=== PATIENT | female | born 1945 | race Caucasian/White ===

== ENCOUNTER 2019-08-28 14:49 | Emergency (ER) | payer MEDICARE, OTHER ==
[~2019-08-28] VITALS: Ht 165.1 cm; Wt 89.8 kg
[2019-08-28] MEDS ORDERED: ZOLOFT 50 MG TA50 M1 PO (15:07)
[2019-08-28] MEDS ORDERED: HYDROCHLOROTHIA25 M2 PO (15:07)
[2019-08-28] MEDS ORDERED: VALSARTAN40 MG PO (15:07)
[2019-08-28] MEDS ORDERED: CRESTOR10 MG PO (15:07)
[2019-08-28] MEDS ORDERED: PHENOBARBITAL15 MG PO (15:08)
[2019-08-28 15:10] LABS: URINE BILIRUBIN NEGATIVE (Negative); URINE BLOOD TRACE (Negative); URINE CLARITY CLEAR; URINE COLOR YELLOW; URINE GLUCOSE-RANDOM NEGATIVE (Negative); URINE KETONES NEGATIVE (Negative); URINE PROTEIN NEGATIVE (Negative); URINE UROBILINOGEN 0.2 E.U./dl (0.2-1.0)
[2019-08-28] MEDS ORDERED: FELODIPINE 5 MG5 M1 PO (15:12)
[2019-08-28 15:13] LABS: URINE LEUKOCYTES-REFLEX 3+ (Negative); URINE NITRITE-REFLEX POSITIVE (Negative)
[2019-08-28 15:19] LABS: BACTERIA-REFLEX >30 Many /HPF (None Seen); CASTS None Seen /LPF (None Seen); CRYSTALS None Seen /LPF (None Seen); SQUAMOUS 0-3 Few /LPF (0-3); URINE RBC 0-2 Rare /HPF (0-2); URINE WBC-REFLEX 6-15 Few /HPF (0-5)
[2019-08-28 15:29] LABS: ABSOLUTE EOSINOPHILS 0.1 thou/uL (0.0-0.7); ABSOLUTE LYMPHOCYTES 2.2 thou/uL (0.8-5.3); ABSOLUTE MONOCYTES 0.6 thou/uL (0.0-1.2); ABSOLUTE NEUTROPHILS 4.8 thou/uL (1.6-8.1); BASOPHILS 0.4 %; EOSINOPHILS 1.9 %; HEMATOCRIT 40.7 % (37.0-47.0); HEMOGLOBIN 14.3 gm/dL (12.0-15.0); LYMPHOCYTES 27.8 %; MCH 31.7 pg (26.0-34.0); MCHC 35.2 g/dL (28.0-37.0); MCV 90.1 fL (80.0-100.0); MONOCYTES 8.1 %; MPV 10.5 fl. (7.2-11.1); NUCLEATED RBCS 0 /100WBC; PLATELET COUNT* 200 thou/uL (150-400); POLYS 61.8 %; RBC 4.52 mil/uL (4.20-5.00); RDW-CV 13.2 % (10.5-14.5); WBC 7.8 thou/uL (4.0-11.0)
[2019-08-28 15:38] LABS: CREATININE 0.7 mg/dL (0.6-1.3); POTASSIUM 3.3 mmol/L (3.5-5.1)
[2019-08-28 15:42] LABS: ALBUMIN 3.6 g/dL (3.4-5.0); TOTAL BILIRUBIN 0.2 mg/dL (<0.1-1.0); TOTAL PROTEIN 8.7 g/dL (6.4-8.2)
[2019-08-28] MEDS ORDERED: KEFLEX500 M1 PO (16:32)
[2019-08-28 16:52] VITALS: BP 142/68
== END 2019-08-28 16:53 | disposition home or self-care (01) ==
LOC: M.ERS 14:49
PROVIDERS: Physician Assistant
DX: R19.7 Diarrhea, unspecified (principal); R51 Headache; N39.0 Urinary tract infection, site not specified

== ENCOUNTER 2019-10-31 17:35 | Emergency (ER) | payer MEDICARE, OTHER ==
[~2019-10-31] VITALS: Ht 167.6 cm; Wt 89.8 kg
[~2019-10-31 17:35] MED LIST: CRESTOR10 MG PO; FELODIPINE 5 MG5 M1 PO; HYDROCHLOROTHIA25 M2 PO; KEFLEX500 M1 PO; PHENOBARBITAL15 MG PO; VALSARTAN40 MG PO; ZOLOFT 50 MG TA50 M1 PO
[2019-10-31] MEDS ORDERED: NABUMETONE 750750 M1 PO (18:55)
[2019-10-31 19:13] VITALS: BP 185/61
== END 2019-10-31 19:14 | disposition home or self-care (01) ==
LOC: M.ERS 17:35
DX: M19.071 Primary osteoarthritis, right ankle and foot (principal); M72.2 Plantar fascial fibromatosis; I10 Essential (primary) hypertension; E78.00 Pure hypercholesterolemia, unspecified; Z88.5 Allergy status to narcotic agent; Z90.710 Acquired absence of both cervix and uterus

== ENCOUNTER 2020-03-10 08:10 | Inpatient (IN) | payer MEDICARE, OTHER ==
[~2020-03-10] VITALS: Ht 165.1 cm; Wt 90.7 kg
[~2020-03-10 08:10] MED LIST changes: +NABUMETONE 750750 M1 PO
[2020-03-10 08:11] VITALS: BP 123/61
[2020-03-10] MEDS ORDERED: NEURONTIN 300M300 M2 PO (08:15)
[2020-03-10] MEDS ORDERED: LEVO-T75 MCG PO (08:15)
[2020-03-10 08:30] LABS: ABSOLUTE BASOPHILS 0.1 thou/uL (0.0-0.2); ABSOLUTE EOSINOPHILS 0.2 thou/uL (0.0-0.7); ABSOLUTE LYMPHOCYTES 1.7 thou/uL (0.8-5.3); ABSOLUTE MONOCYTES 0.8 thou/uL (0.0-1.2); ABSOLUTE NEUTROPHILS 5.8 thou/uL (1.6-8.1); BASOPHILS 0.8 %; EOSINOPHILS 2.1 %; HEMATOCRIT 41.1 % (37.0-47.0); HEMOGLOBIN 14.3 gm/dL (12.0-15.0); LYMPHOCYTES 20.4 %; MCH 31.3 pg (26.0-34.0); MCHC 34.8 g/dL (28.0-37.0); MONOCYTES 8.9 %; MPV 10.5 fl. (7.2-11.1); NUCLEATED RBCS 0 /100WBC; PLATELET COUNT* 183 thou/uL (150-400); POLYS 67.8 %; RBC 4.57 mil/uL (4.20-5.00); RDW-CV 12.9 % (10.5-14.5); WBC 8.6 thou/uL (4.0-11.0)
[2020-03-10 08:43] LABS: APTT 25.9 Seconds (25.0-31.3); PROTIME 11.1 Seconds (9.20-11.50)
[2020-03-10 08:45] LABS: CALCIUM 8.8 mg/dL (8.5-10.1); CREATININE 0.8 mg/dL (0.6-1.3); POTASSIUM 3.3 mmol/L (3.5-5.1)
[2020-03-10 08:58] LABS: ALBUMIN 3.2 g/dL (3.4-5.0); CK-MB MASS 1.8 ng/mL (<0.5-3.6); MAGNESIUM 2.1 mg/dL (1.8-2.4); TOTAL BILIRUBIN 0.3 mg/dL (<0.1-1.0); TOTAL PROTEIN 7.9 g/dL (6.4-8.2)
[2020-03-10 10:40] LABS: CHOLESTEROL 162 mg/dL (<200); HDL CHOLESTEROL 71 mg/dL (>40); LDL CHOLESTEROL 67 mg/dL (<100); TC:HDL 2.3 Ratio (Not establshd); TRIGLYCERIDE 123 mg/dL (<150); VLDL 25 mg/dL (<40)
[2020-03-10 10:42] LABS: SERUM ASSESSMENT Clear
[2020-03-10 12:30] VITALS: BP 105/60
--- NOTE | 2020-03-10 15:13 | EKG ---
[place] [address] ELECTROCARDIOGRAM REPORT Name: BLESSING HARRIS V Room: [place] [address] ADM IN .R.#: [id number] Admission: 03/10/20 Attend Phys: Ramiro Britton, Discharge: Date of : 41 Date of Service: 03/10/20814 Report #: [id number] THIS REPORT FOR: //name// [facility] ED Test Date: 2020-03-10 Test Time: 08:15:35 Pat Name: BLESSING HARRIS Department: Room: [facility] Gender: F [employer] Worker: MIRELLA : 1945 Requested By: Henok Gonzalez Order Number: [id number] MD: Orlando Sandoval Measurements Intervals [place] Rate: 90 P: NE: QRS: 72 QRSD: 99 T: -15 QT: 382 QTc: 468 Interpretive Statements Atrial fibrillation Borderline repolarization abnormality Minimal ST elevation, inferior leads No previous ECG available for comparison Electronically Signed On 03-10-2020 15:13:17 MANAGED CARE NURSE by Orlando Sandoval [email or web address] <ELECTRONICALLY SIGNED> By: Orlando Sandoval MD, [facility] 03/10/20 1513 4 4 Orlando Sandoval MD, [facility] /EPI
--- NOTE | 2020-03-10 16:02 | 2DMMODE ---
[place] [address] 2 D/M-MODE ECHOCARDIOGRAM Name: BLESSING HARRIS Lito Room: [place] [address] ADM IN ..#: [id number] Admission: 03/10/20 Attend Phys: Ramiro Britton, Discharge: Date of : 41 Date of Service: 03/10/20 1602 Report #: [id number] THIS REPORT FOR: cc: Blaze Guzman MD, Jason MD Holkins,Orlando Douglas MD [facility] ~ APPROVED REPORT Study performed: 03/10/2020 14:25:41 EXAM: Comprehensive 2D, Doppler, and color-flow Echocardiogram Patient Location: In-Patient Room #: er Status: routine BSA: 1.98 HR: 79 bpm BP: 100/51 mmHg Rhythm: NSR Other Information Study Quality: Good Indications Atrial Fibrillation 2D Dimensions IVSd: 11.31 (7-11mm) LVOT Diam: 20.01 (18-24mm) LVDd: 30.70 mm PWd: 8.99 (7-11mm) Ascending Ao: 30.87 (22-36mm) LVDs: 20.30 (25-40mm) Aortic Root: 33.57 mm Volumes Left Atrial Volume (Systole) LA ESV Index: 14.40 mL/m2 Aortic Valve AoV Peak Serjio.: 0.95 m/s AO Peak Gr.: 3.59 mmHg LVOT Max P.01 mmHg AO Mean Gr.: 2.07 mmHg LVOT Mean P.98 mmHg LVOT Max V: 0.71 m/s AO V2 VTI: 17.21 cm LVOT Mean V: 0.45 m/s CONCEPCION (VTI): 2.63 cm2 LVOT V1 VTI: 14.39 [place] [address] 2 D/M-MODE ECHOCARDIOGRAM Name: BLESSING HARRIS V Room: [address] IN [facility]#: [id number] Admission: 03/10/20 Attend Phys: Ramiro Britton, Discharge: Date of : 41 Date of Service: 03/10/20 1602 Report #: [id number] TDI Medial E' Serjio.: 0.13 m/s Lateral E' Serjio.: 0.13 m/s Pulmonary Valve PV Peak Serjio.: 1.00 m/s PV Peak Gr.: 3.97 mmHg Left Ventricle The left ventricle is normal size. There is normal LV segmental wall motion. There is normal left ventricular wall thickness. Left ventricular systolic function is normal. The left ventricular ejection fraction is within the normal range. LVEF is 55-60%. This study is not technically sufficient to allow evaluation of the LV diastolic function due to atrial fibrillation. Right Ventricle The right ventricle is normal size. The right ventricular systolic function is normal. Atria The left atrium size is normal. The right atrium size is normal. Aortic Valve The aortic valve is normal in structure. No aortic regurgitation is present. There is no aortic valvular stenosis. Mitral Valve The mitral valve is normal in structure. There is no mitral valve regurgitation noted. No evidence of mitral valve stenosis. Tricuspid Valve The tricuspid valve is normal in structure. Trace tricuspid regurgitation. Unable to assess PA pressure. Pulmonic Valve The pulmonary valve is normal in structure. There is no pulmonic valvular regurgitation. Great Vessels The aortic root is normal in size. IVC is normal in size and collapses >50% with inspiration. Pericardium There [place] [address] 2 D/M-MODE ECHOCARDIOGRAM Name: STEVENGELA AYALAMARIEL Morse Room: [address] IN [facility]#: [id number] Admission: 03/10/20 Attend Phys: Ramiro Britton, Discharge: Date of : 41 Date of Service: 03/10/20 1602 Report #: [id number] <Conclusion> The left ventricle is normal size. There is normal left ventricular wall thickness. Left ventricular systolic function is normal. The left ventricular ejection fraction is within the normal range. LVEF is 55-60%. This study is not technically sufficient to allow evaluation of the LV diastolic function due to atrial fibrillation. The right ventricle is normal size. The left atrium size is normal. The aortic valve is normal in structure. The mitral valve is normal in structure. The tricuspid valve is normal in structure. IVC is normal in size and collapses >50% with inspiration. There is no pericardial effusion. There is normal LV segmental wall motion. <ELECTRONICALLY SIGNED> By: Orlando Sandoval MD, FACC 03/10/20 1602 160 160 Orlando Sandoval MD, FACC /INF
[2020-03-10 16:33] VITALS: BP 115/51
[2020-03-10 17:33] VITALS: BP 145/68
[2020-03-10 20:00] VITALS: BP 136/65
[2020-03-11] VITALS (7 sets, daily range): BP systolic 110–145; BP diastolic 40–57
[2020-03-11 04:31] LABS: ABSOLUTE BASOPHILS 0.1 thou/uL (0.0-0.2); ABSOLUTE EOSINOPHILS 0.3 thou/uL (0.0-0.7); ABSOLUTE LYMPHOCYTES 2.4 thou/uL (0.8-5.3); ABSOLUTE MONOCYTES 0.7 thou/uL (0.0-1.2); ABSOLUTE NEUTROPHILS 4.3 thou/uL (1.6-8.1); BASOPHILS 0.8 %; EOSINOPHILS 3.3 %; HEMATOCRIT 38.4 % (37.0-47.0); LYMPHOCYTES 31.1 %; MCH 30.9 pg (26.0-34.0); MCHC 33.9 g/dL (28.0-37.0); MCV 91.2 fL (80.0-100.0); MONOCYTES 9.6 %; MPV 11.1 fl. (7.2-11.1); NUCLEATED RBCS 0 /100WBC; PLATELET COUNT* 170 thou/uL (150-400); POLYS 55.2 %; RBC 4.22 mil/uL (4.20-5.00); RDW-CV 13.6 % (10.5-14.5); WBC 7.7 thou/uL (4.0-11.0)
[2020-03-11 04:52] LABS: CALCIUM 8.7 mg/dL (8.5-10.1); CREATININE 0.7 mg/dL (0.6-1.3)
[2020-03-11 04:53] LABS: POTASSIUM 4.4 mmol/L (3.5-5.1)
--- NOTE | 2020-03-11 17:50 | CARDNUC ---
[place] [address] CARDIAC NUCLEAR IMAGING REPORT Name: STEVENBLESSING AYALA Lito Room: [address] IN [facility].#: [id number] Admission: 03/10/20 Attend Phys: Ramiro Britton, Discharge: Date of : 41 Date of Service: 03/11/20 1750 Report #: [id number] THIS REPORT FOR: cc: Blaze Guzman MD, Jason MD Biggs, F. Douglas MD [facility] ~ ADDENDUM APPROVED REPORT Study performed: 03/11/2020 10:02:34 Exam: Nuclear Stress Test Indication: Chest tightness, dyspnea, Afib, elevated D-Dimer. Patient Location: In-Patient Room #: 229 Stress Tech: Alanna Bird Stress Nurse: Leah Bustamante R.N. Ht: 5 ft 5 in Wt: 200 lbs BSA: 1.98 m2 BMI: 33.27 Medical History Medical History: Chest tightness, dyspnea, elevated D-Dimer, Lightheadedness, Emphysema, AFib with RVR, HX Epilepsy, secondary hypercoagulopathy, HTN, HLD, past smoker. Medications: ASA 81 Mg, HCTZ, Hydralazine, Amlodipine, Losartan K+, Atorvastatin, K-Dur. Allergies: Codeine. Cardiac Risk Factors: Age, FHX of CAD, HTN, Hyperlipidemia, SOB, Past Smoker, Obesity, AFib. Previous Cardiac Procedures: None Pretest Chest Pain Characteristics: No chest pain Exercise History: Indeterminate Physical Disabilities: Hx AFib with RVR, Epilepsy, unstable gait. Meds Held (24 hrs): None Stress Test Details Stress Test: Pharmacologic stress testing performed using 0.4 mg of regadenoson per 5 mL given IV over 10 seconds. Reason for pharmacologic stress test: Hx AFib with RVR, Epilepsy, Unstable gait.. HR Resting HR: 71 bpm Max Heart Rate (APMHR): 144 bpm Max HR Achieved: 87 bpm Target HR (85% APMHR): 122 [place] [address] CARDIAC NUCLEAR IMAGING REPORT Name: BLESSING HARRIS V Room: [address]#: [id number] Admission: 03/10/20 Attend Phys: Ramiro Britton, Discharge: Date of : 41 Date of Service: 03/11/20 4360 Report #: [id number] % of APMHR: 60 Recovery HR: 79 bpm HR response to stress: Normal HR response to stress BP Resting BP: 137/61 mmHg Max BP: 115/53 mmHg BP response to stress: Normal blood pressure response to stress. ECG Resting ECG: Sinus Rhythm, normal EKG Stress ECG: Sinus Rhythm, normal EKG ST Change: None Arrhythmia: None Recovery ECG: Sinus Rhythm, normal EKG Recovery ST Change: None Recovery Arrhythmia: None Clinical Reason for Termination: Completed protocol Stress Symptoms: Lightheadedness. Exercise duration: 00 min 00 sec Exercise capacity: 1.00 METs Nurse Comments A 74 year old female inpatient presented for a sitting Lexiscan r/t new onset AFib with RVR, dyspnea, chest tightness, elevated D-Dimer. Test well tolerated. Recovery unremarkable. Patient was stable and stated she felt good when escorted to Nuclear Medicine for imaging. Stress ECG Conclusion Clinical: Non-ischemic Non-diagnostic pharmacologic EKG stress due to failure to attain target HR. NM EXAM: Myocardial Perfusion REST/STRESS Imaging Protocol: Rest Tc-99m/Stress Tc-99m 2 days Resting Data Rest SPECT myocardial perfusion imaging was performed in supine position 30 minutes following the intravenous injection of 32.0 mCi of Tc-99m Sestamibi. Time of rest injection: 1414 Date: 03/10/2020 The images were gated to evaluate regional wall motion [place] [address] CARDIAC NUCLEAR IMAGING REPORT Name: BLESSING HARRIS V Room: [address] IN M..#: [id number] Admission: 03/10/20 Attend Phys: Ramiro Britton, Discharge: Date of : 41 Date of Service: 03/11/20 3500 Report #: [id number] left ventricular ejection fraction. Administration Route: IV Administration Site: Left Arm Pharmacologic Stress Pharmacologic stress test was performed by injecting Regadenoson 0.4 mg IV push followed by the intravenous injection of 31.8 mCi of Tc-99m Sestamibi. Time of stress injection: 1005 Date: 03/11/2020 Administration Route: IV Administration Site: Left Arm Gated Stress SPECT was performed 40 minutes after stress injection. The images were gated to evaluate regional wall motion and calculate left ventricular ejection fraction. Prone imaging was performed. Study Quality Study: Good Artifact: Mild Soft tissue attenuation artifact Study Data At rest, the left ventricular ejection fraction was 81%.. Post stress, the left ventricular ejection was 83%.. SSS: 2 SRS: 0 SDS: 2 TID = 1.14. Perfusion Normal left ventricular perfusion. The resting study demonstrated a small mild anterior defect. The post-rest images demonstrate a small mild anterior defect and a very small very mild inferior defect. Prone images were done and demonstrate only very small mild anterior defect. There were no reversible defects seen there was no evidence of myocardial ischemia. The fixed defect seen could represent old myocardial infarction but likely just represents t chest wall or breast artifact. Images were [place] [address] CARDIAC NUCLEAR IMAGING REPORT Name: BLESSING HARRIS V Room: [address] IN [facility].#: [id number] Admission: 03/10/20 Attend Phys: Ramiro Britton, Discharge: Date of : 41 Date of Service: 03/11/20 1750 Report #: [id number] Wall Motion Normal left ventricular wall motion. Nuclear Conclusion ECG Findings: non-diagnostic Clinical Findings: negative for ischemia Nuclear Findings: negative for ischemia Exercise Capacity: not assessed Left Ventricular Function: normal Risk Study: low Normal study. No scintigraphic evidence for myocardial ischemia or scar. <Conclusion> Clinical: Non-ischemic Non-diagnostic pharmacologic EKG stress due to failure to attain target HR. <ELECTRONICALLY SIGNED> By: Fred Simms MD, FACC 03/11/201749 49 49 Fred Simms MD, FACC /INF
[2020-03-12 04:00] VITALS: BP 138/62
[2020-03-12 08:00] VITALS: BP 137/52
[2020-03-12] MEDS ORDERED: FLECAINIDE ACET50 M1 PO (09:51)
[2020-03-12] MEDS ORDERED: ELIQUIS5 MG PO (09:51)
[2020-03-12 12:28] VITALS: BP 131/62
[2020-03-12 13:28] VITALS: BP 131/62
--- NOTE | 2020-03-12 18:23 | EKG ---
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 ANN : 1945 Requested By: Holley Patel Order Number: [id number] Reading MD: Ousmane Simms Measurements Intervals [place] Rate: 63 P: 55 [place]: 230 QRS: 77 QRSD: 102 T: 33 QT: 425 QTc: 436 Interpretive Statements Sinus rhythm Prolonged [place] interval Probable left atrial enlargement Low voltage, precordial leads Baseline wander in lead(s) V5 Compared to ECG 03/10/2020 08:15:35 First degree AV block now present Low QRS voltage now present Atrial fibrillation no longer present ST (T wave) deviation no longer present Electronically Signed On 03-12-2020 18:22:55 RECRUITING MANAGER by Ousmane Simms [email or web address] <ELECTRONICALLY SIGNED> By: Fred Simms MD, FACC 03/12/20 1822 07 07 Fred Simms MD, [facility] /EPI
== END 2020-03-12 14:40 | disposition home health service (06) | DRG 309 ==
LOC: M.ERS 08:10 → M.2W 09:29 → M.TBA-ER 09:29 → M.2W 17:18
PROVIDERS: Family Medicine; Registered Nurse; ADMIT Internal Medicine; ATTEND Internal Medicine
DX: I48.0 Paroxysmal atrial fibrillation (principal); D68.69 Other thrombophilia; E03.9 Hypothyroidism, unspecified; I10 Essential (primary) hypertension; G40.909 Epilepsy, unspecified, not intractable, without status epilepticus; E78.00 Pure hypercholesterolemia, unspecified; E78.5 Hyperlipidemia, unspecified; E87.6 Hypokalemia; J43.9 Emphysema, unspecified; Z20.828 Contact with and (suspected) exposure to other viral communicable diseases; Z88.5 Allergy status to narcotic agent; Z79.899 Other long term (current) drug therapy; Z87.891 Personal history of nicotine dependence

== ENCOUNTER 2020-03-22 12:17 | Emergency (ER) | payer MEDICARE, OTHER ==
[~2020-03-22] VITALS: Ht 165.1 cm; Wt 90.7 kg
--- NOTE | ~2020-03-22 | EMS ---
[facility] [address] [place] [address] EMS Patient Care Report Name: BLESSING HARRIS [id number] Admission: 03/22/20 Attend Phys: Discharge: 03/22/20 Date of : 41 Report #: [id number] THIS REPORT FOR: //name// Report Transmitted: 03/25/2020 12:08 EMS Care Summary LILIA SUBRAMANIAN Incident [id number] @ 03/10/2020 07:27 Incident Location [address] [place] [address] Patient Blessing Harris Female, 74 Years 1945 Patient Address [address] [place] [address] Patient History Hypertension (HTN),Epilepsy, unspecified, not intractable,, Patient Allergies , Chief Complaint Chest Pain Disposition Transported No Lights/[place] Dispatch Reason Chest Pain (Non-Traumatic) Transported To [facility] Narrative [facility] ARRIVED ON SCENE OF A RESIDENCE FOR A 74 YEAR OLD FEMALE WITH CHEST PAIN. [facility] AND [facility] PERSONNEL ENTERED THE RESIDENCE AND MADE CONTACT WITH AN AWAKE AND ALERT FEMALE SITTING ON THE COUCH SHOWING MILD SIGNS OF SHORTNESS OF AIR. BLESSING REPORTED TIGHTNESS WHICH SHE DESCRIBED A BAND AROUND HER CHEST AND MILD SHORTNESS OF AIR SINCE MIDNIGHT. VITAL SIGNS AND A 12 LEAD EKG WERE OBTAINED SHOWING RAPID ATRIAL FIBRILLATION ON THE MONITOR WITH A RATE BETWEEN [facility] [address] [place] [address] EMS Patient Care Report Name: BLESSING HARRIS V Room: [facility] ([place] [place])#: [id number] Admission: 03/22/20 Attend Phys: Discharge: 03/22/20 Date of : 41 Report #: [id number] 75 AND 140 BPM. BLESSING PLACED HERSELF ON THE COT WHERE SHE WAS SECURED VIA 5 SAFETY STRAPS PRIOR TO BEING SECURED INTO THE AMBULANCE. TREATMENTS AND INTERVENTIONS WERE EXECUTED AND BLESSING WAS MONITORED DURING TRANSPORT TO [facility] WITH A DECREASE IN HEART RATE (65-100 BPM) AND NO OTHER SIGNIFICANT CHANGES. UPON ARRIVAL, BLESSING WAS REMOVED FROM THE UNIT AND TAKEN INSIDE TO ER 16 WHERE SHE TRANSFERRED HERSELF LATERALLY ONTO THE ER BED. REPORT WAS GIVEN TO THE RECEIVING RN AND CARE WAS TRANSFERRED. [facility] BACK IN SERVICE. Initial Vitals @07:36Pain: 11/04, @08:09Pain: 11/04, @07:36SpO2: 99, @08:07SpO2: 99, @07:37 @07:36 @07:37P: 105,R: 20,BP: 209/94, @08:05P: 90,R: 18,BP: 138/72, @07:37GCS: 15, @08:05GCS: 15, @07:47Glucose: 178, Assessments @07:36MENTAL:SKIN:HEENT:LUNG SOUNDS:ABDOMEN:PELVIS//GI:EXTREMITIES:PULSE:NEURO: Impression Cardiac arrhythmia/dysrhythmia Procedures @07:46 cc () Site: Forearm-LeftResponse: UnchangedSucceeded@07:3712-Lead ECGResponse: UnchangedSucceeded@07:363-Lead ECGResponse: UnchangedSucceeded Timeline 00:36,Call Received 07:26,Dispatch Notified 07:,Psap Call 07:27,Dispatched 07:27,En Route 07:33,On Scene 07:36,At Patient 07:36,3-Lead ECG,Response: UnchangedSucceeded, 07:36,BP: / M,PULSE: ,RR: R,SPO2: Ox,ETCO2: ,BG: ,PAIN: 8,GCS: , 07:36,BP: / M,PULSE: ,RR: R,SPO2: 99 Ox,ETCO2: ,BG: ,PAIN: ,GCS: , 07:36,BP: / M,PULSE: ,RR: R,SPO2: Ox,ETCO2: ,BG: ,PAIN: ,GCS: , 07:37,12-Lead ECG,Response: UnchangedSucceeded, 07:37,BP: / M,PULSE: ,RR: R,SPO2: Ox,ETCO2: ,BG: ,PAIN: ,GCS: , [place] [address] EMS Patient Care Report Name: BLESSING HARRIS V Room: [facility] ([place] [place])#: [id number] Admission: 03/22/20 Attend Phys: Discharge: 03/22/20 Date of : 41 Report #: [id number] 07:37,BP: 209/94 M,PULSE: 105,RR: 20 R,SPO2: Ox,ETCO2: ,BG: ,PAIN: ,GCS: , 07:37,BP: / M,PULSE: ,RR: R,SPO2: Ox,ETCO2: ,BG: ,PAIN: ,GCS: 15, 07:46, cc Site: Forearm-Left,Response: UnchangedSucceeded, 07:47,BP: / M,PULSE: ,RR: R,SPO2: Ox,ETCO2: ,B,PAIN: ,GCS: , 07:48,Depart Scene 08:05,BP: 138/72 M,PULSE: 90,RR: 18 R,SPO2: Ox,ETCO2: ,BG: ,PAIN: ,GCS: , 08:05,BP: / M,PULSE: ,RR: R,SPO2: Ox,ETCO2: ,BG: ,PAIN: ,GCS: 15, 08:07,BP: / M,PULSE: ,RR: R,SPO2: 99 Ox,ETCO2: ,BG: ,PAIN: ,GCS: , 08:09,BP: / M,PULSE: ,RR: R,SPO2: Ox,ETCO2: ,BG: ,PAIN: 8,GCS: , 08:09,At Destination 08:19,Call Closed Disclaimer v1.1 Copyright 2020 [employer] This EMS Care Summary contains data elements from the applicable legal record (which may be displayed differently). It is designed to provide pertinent information for the following purposes: continuity of care, clinical quality, and state data reporting. The complete legal record is available to ED staff and administrators of the receiving hospital in [employer] Patient Tracker. All data is provided "as is."
[~2020-03-22 12:17] MED LIST changes: +ELIQUIS5 MG PO; +FLECAINIDE ACET50 M1 PO; +LEVO-T75 MCG PO; +NEURONTIN 300M300 M2 PO
[2020-03-22] MEDS ORDERED: CALCIUM 600 +1 EAC1 PO (12:35)
[2020-03-22 12:54] LABS: ABSOLUTE BASOPHILS 0.1 thou/uL (0.0-0.2); ABSOLUTE EOSINOPHILS 0.3 thou/uL (0.0-0.7); ABSOLUTE LYMPHOCYTES 1.7 thou/uL (0.8-5.3); ABSOLUTE MONOCYTES 0.6 thou/uL (0.0-1.2); ABSOLUTE NEUTROPHILS 4.4 thou/uL (1.6-8.1); BASOPHILS 0.8 %; EOSINOPHILS 3.6 %; HEMATOCRIT 36.5 % (37.0-47.0); HEMOGLOBIN 12.4 gm/dL (12.0-15.0); LYMPHOCYTES 24.6 %; MCH 30.9 pg (26.0-34.0); MCHC 34.1 g/dL (28.0-37.0); MCV 90.8 fL (80.0-100.0); MONOCYTES 8.4 %; MPV 10.1 fl. (7.2-11.1); NUCLEATED RBCS 0 /100WBC; PLATELET COUNT* 188 thou/uL (150-400); POLYS 62.6 %; RBC 4.02 mil/uL (4.20-5.00); RDW-CV 13.8 % (10.5-14.5)
[2020-03-22] MEDS ORDERED: POTASSIUM20 PO (12:57)
[2020-03-22] MEDS ORDERED: HYDROCHLOROTHIA25 M2 PO (12:57)
[2020-03-22 13:02] LABS: CALCIUM 8.7 mg/dL (8.5-10.1); CREATININE 0.8 mg/dL (0.6-1.3); POTASSIUM 3.8 mmol/L (3.5-5.1)
[2020-03-22 13:07] LABS: APTT 27.1 Seconds (25.0-31.3); PROTIME 10.9 Seconds (9.20-11.50)
[2020-03-22 13:13] LABS: ALBUMIN 3.3 g/dL (3.4-5.0); TOTAL BILIRUBIN 0.2 mg/dL (<0.1-1.0); TOTAL PROTEIN 7.3 g/dL (6.4-8.2)
[2020-03-22 13:34] VITALS: BP 168/72
--- NOTE | 2020-03-23 13:11 | EKG ---
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: : 1945 Requested By: Henok Gonzalez Order Number: [id number] MD: Eloy Curtis Measurements Intervals [place] Rate: 65 P: 68 [place]: 209 QRS: 76 QRSD: 118 T: 32 QT: 452 QTc: 470 Interpretive Statements Sinus rhythm LAE, consider biatrial enlargement Incomplete right bundle branch block Baseline wander in lead(s) V3 Compared to ECG 03/12/2020 11:08:34 Incomplete right bundle-branch block now present First degree AV block no longer present Electronically Signed On 03-23-2020 13:11:36 [employer] by Eloy Curtis [email or web address] <ELECTRONICALLY SIGNED> By: Eloy Curtis MD, FACC 03/23/20 1311 1226 1226 Eloy Curtis MD, FACC /EPI
== END 2020-03-22 13:35 | disposition home or self-care (01) ==
LOC: M.ERS 12:17
PROVIDERS: Family Medicine
DX: R60.0 Localized edema (principal); Z20.828 Contact with and (suspected) exposure to other viral communicable diseases; I10 Essential (primary) hypertension; E78.00 Pure hypercholesterolemia, unspecified; Z90.710 Acquired absence of both cervix and uterus; Z88.5 Allergy status to narcotic agent

== ENCOUNTER → 2020-04-01 | Outpatient (CLI) | payer MEDICARE, OTHER ==
[~2020-04-01] MED LIST changes: +CALCIUM 600 +1 EAC1 PO; +POTASSIUM20 PO
[2020-04-01 14:32] LABS: CALCIUM 9.8 mg/dL (8.5-10.1); CREATININE 0.7 mg/dL (0.6-1.3); POTASSIUM 3.9 mmol/L (3.5-5.1)
== END ==
LOC: M.LAB 14:02
PROVIDERS: ATTEND Nurse Practitioner
DX: E87.6 Hypokalemia (principal)

== ENCOUNTER → 2020-04-23 | Outpatient (CLI) | payer MEDICARE, OTHER ==
--- NOTE | 2020-06-02 21:05 | SLEEP ---
[address] [address] SLEEP STUDY REPORT Name: BLESSING HARRIS V Room: [facility]#: [id number] Admission: 04/23/20 Attend Phys: Kimberley Melgar RN Discharge: Date of : 41 Report #: [id number] THIS REPORT FOR: cc: Blaze Guzman MD, Jason MD ~ Sarwat Kilpatrick MD This study has been reviewed in its entirety by a board certified sleep specialist DATE OF SERVICE: 04/24/2020 HOME SLEEP STUDY INTERPRETATION: Total duration of the study is only 80 minutes. During this time period, we did record 3 obstructive apneas and 9 hypopneas with an overall apnea-hypopnea index of 16.4. There are also multiple desaturations recorded. Overall, the patient did spend 80.9 minutes below an O2 saturation of 90%, out of which 46.6 minutes were spent below an O2 saturation of 88%. The patient is reported to be supine throughout the 80 minutes that this sleep study was performed. IMPRESSION: This is an older sleep study from March. I do not have a recollection of seeing the sleep study prior to today and there is only 80 minutes of data. The limited data collected does raise the suspicion of obstructive sleep apnea as well as nocturnal hypoxemia. I recommend repeating the sleep study. <ELECTRONICALLY SIGNED> By: Sarwat Kilpatrick MD 06/02/205 41 2055AMD zoraida Dill
== END ==
LOC: M.PUL 14:00
PROVIDERS: ATTEND Nurse Practitioner
DX: R40.0 Somnolence (principal); I48.0 Paroxysmal atrial fibrillation; R06.03 Acute respiratory distress

== ENCOUNTER 2020-07-14 08:44 | Emergency (ER) | payer MEDICARE, OTHER ==
[~2020-07-14] VITALS: Ht 162.6 cm; Wt 97.8 kg
[2020-07-14 09:10] LABS: ABSOLUTE BASOPHILS 0.1 thou/uL (0.0-0.2); ABSOLUTE EOSINOPHILS 0.2 thou/uL (0.0-0.7); ABSOLUTE LYMPHOCYTES 1.7 thou/uL (0.8-5.3); ABSOLUTE MONOCYTES 0.8 thou/uL (0.0-1.2); ABSOLUTE NEUTROPHILS 5.7 thou/uL (1.6-8.1); BASOPHILS 0.6 %; EOSINOPHILS 1.8 %; HEMATOCRIT 40.7 % (37.0-47.0); HEMOGLOBIN 13.8 gm/dL (12.0-15.0); LYMPHOCYTES 20.3 %; MCH 30.5 pg (26.0-34.0); MCHC 33.9 g/dL (28.0-37.0); MCV 90.1 fL (80.0-100.0); MONOCYTES 9.2 %; MPV 10.4 fl. (7.2-11.1); NUCLEATED RBCS 0 /100WBC; PLATELET COUNT* 185 thou/uL (150-400); POLYS 68.1 %; RBC 4.52 mil/uL (4.20-5.00); RDW-CV 13.1 % (10.5-14.5); WBC 8.4 thou/uL (4.0-11.0)
[2020-07-14 09:25] LABS: CALCIUM 9.6 mg/dL (8.5-10.1); CREATININE 0.7 mg/dL (0.6-1.3); POTASSIUM 3.9 mmol/L (3.5-5.1)
[2020-07-14 09:26] LABS: APTT 28.1 Seconds (25.0-31.3)
[2020-07-14 09:34] LABS: ALBUMIN 3.6 g/dL (3.4-5.0); MAGNESIUM 2.3 mg/dL (1.8-2.4); TOTAL BILIRUBIN 0.2 mg/dL (<0.1-1.0); TOTAL PROTEIN 8.6 g/dL (6.4-8.2)
[2020-07-14 11:53] VITALS: BP 133/57
--- NOTE | 2020-07-15 14:10 | EKG ---
[place] [address] ELECTROCARDIOGRAM REPORT Name: BLESSING HARRIS V Room: 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 : 1945 Requested By: Preet Tompkins Order Number: [id number] MD: Eloy Curtis Measurements Intervals [place] Rate: 68 P: 64 [place]: 234 QRS: 94 QRSD: 106 T: 42 QT: 420 QTc: 447 Interpretive Statements Sinus rhythm Prolonged [place] interval Probable left atrial enlargement Incomplete right bundle branch block Compared to ECG 03/22/2020 12:26:56 First degree AV block now present Electronically Signed On 07-15-2020 14:09:54 CDT by Eloy Curtis [email or web address] <ELECTRONICALLY SIGNED> By: Eloy Curtis MD, FACC 07/15/20 1409 0854 0854 Eloy Curtis MD, [facility] /EPI
== END 2020-07-14 11:55 | disposition home or self-care (01) ==
LOC: M.ERS 08:44
PROVIDERS: Emergency Medicine Emergency Medical Services
DX: R04.0 Epistaxis (principal); R07.89 Other chest pain; I10 Essential (primary) hypertension; E78.00 Pure hypercholesterolemia, unspecified; I48.91 Unspecified atrial fibrillation; Z88.5 Allergy status to narcotic agent; Z90.710 Acquired absence of both cervix and uterus

== ENCOUNTER 2020-07-21 08:55 | Emergency (ER) | payer MEDICARE, OTHER ==
[~2020-07-21] VITALS: Ht 167.6 cm; Wt 90.7 kg
[2020-07-21 09:33] VITALS: BP 154/64
== END 2020-07-21 10:10 | disposition home or self-care (01) ==
LOC: M.ERS 08:55
DX: R04.0 Epistaxis (principal); I10 Essential (primary) hypertension; E78.00 Pure hypercholesterolemia, unspecified; I48.91 Unspecified atrial fibrillation; Z90.710 Acquired absence of both cervix and uterus; Z88.5 Allergy status to narcotic agent